=== PATIENT | male | born 1985 | race African-American/Black ===

== ENCOUNTER 2016-07-13 22:04 | Emergency (ER) | payer MEDICAID, OTHER ==
[~2016-07-13] VITALS: Ht 172.7 cm; Wt 94.0 kg
[2016-07-14] MEDS ORDERED: ASPIRIN 81MG TABLET PO STA (02:06)
[2016-07-14 02:27] LABS: EOSINOPHILS % 1.8 % (0.0-5.0); HEMATOCRIT. 46.7 % (42.0-52.0); HEMOGLOBIN. 15.9 g/dL (14.0-18.0); LYMPHOCYTES % 43.9 % (20.0-50.0); MEAN CORPUSCULAR HEMOGLOBIN 31.6 pg (28.0-32.0); MEAN CORPUSCULAR HGB CONC 34.1 g/dL (31.0-37.0); MEAN CORPUSCULAR VOLUME 92.9 fL (80.0-94.0); MEAN PLATELET VOLUME 8.8 fl (7.4-10.4); MONOCYTES % 6.6 % (2.0-8.0); NEUTROPHILS % 46.7 % (40.0-76.0); PLATELET 199 x1000/uL (130-400); RED BLOOD CELL COUNT 5.02 mill/uL (4.7-6.1); RED CELL DISTRIBUTION WIDTH 13.7 % (11.6-14.6); WHITE BLOOD COUNT 8.9 x1000/uL (4.5-11.0)
[2016-07-14 02:31] LABS: PARTIAL THROMBOPLASTIN TIME 26.7 sec (24.0-34.0); PROTHROMBIN TIME 10.7 sec
[2016-07-14 02:41] LABS: ALANINE AMINOTRANSFERASE 24 IU/L (13-61); ALBUMIN 3.7 g/dL (3.4-5.0); ANION GAP 12; CALCIUM 8.8 mg/dL (8.5-10.1); CARBON DIOXIDE 30 mEq/L (21-32); CHLORIDE 108 mEq/L (98-107); INDEX HEMOLYSI 1 (1-3); INDEX ICTERIC 1 (1-4); INDEX LIPEMIC 1 (1-3); LIPASE 100 IU/L (73-393); TROPONIN I < 0.02 ng/mL (0.00-0.04); UREA NITROGEN BLOOD 13 mg/dL (7-21); eGFR > 60 mL/min (>60)
[2016-07-14 02:55] VITALS: BP 127/69
== END 2016-07-14 03:50 | disposition home or self-care (01) ==
LOC: ER 22:05
DX: R07.9 Chest pain, unspecified (principal); R06.02 Shortness of breath; R20.0 Anesthesia of skin; Z79.82 Long term (current) use of aspirin; Z87.891 Personal history of nicotine dependence
CPT/HCPCS: 36415; 71010; 80053; 83690; 84484; 85025; 85610; 85730; 93005; 99285; 99406; Z7610

== ENCOUNTER 2016-07-15 22:37 | Emergency (ER) | payer OTHER ==
[~2016-07-15] VITALS: Ht 170.2 cm; Wt 91.0 kg
[2016-07-16] MEDS ORDERED: ONDANSETRON HCL 4MG/2ML VIAL IV STA (02:11)
[2016-07-16] MEDS ORDERED: MAGNESIUM/ALUMINUM HYDROXIDE/SIMETHICONE 30ML UDC PO STA (02:11)
[2016-07-16] MEDS ORDERED: SODIUM CHLORIDE 0.9% 1,000 ML IV ONE (02:11)
[2016-07-16 02:54] LABS: BASOPHILS % 0.3 % (0.0-2.0); EOSINOPHILS % 3.2 % (0.0-5.0); HEMATOCRIT. 45.8 % (42.0-52.0); HEMOGLOBIN. 15.4 g/dL (14.0-18.0); LYMPHOCYTES % 33.5 % (20.0-50.0); MEAN CORPUSCULAR HEMOGLOBIN 31.3 pg (28.0-32.0); MEAN CORPUSCULAR HGB CONC 33.7 g/dL (31.0-37.0); MONOCYTES % 6.6 % (2.0-8.0); NEUTROPHILS % 56.4 % (40.0-76.0); PLATELET 201 x1000/uL (130-400); RED BLOOD CELL COUNT 4.93 mill/uL (4.7-6.1); RED CELL DISTRIBUTION WIDTH 13.6 % (11.6-14.6); WHITE BLOOD COUNT 9.2 x1000/uL (4.5-11.0)
[2016-07-16 03:08] LABS: ALANINE AMINOTRANSFERASE 22 IU/L (13-61); ALBUMIN 3.8 g/dL (3.4-5.0); ANION GAP 11; CALCIUM 8.6 mg/dL (8.5-10.1); CARBON DIOXIDE 29 mEq/L (21-32); CHLORIDE 106 mEq/L (98-107); ETHANOL BLOOD < 10 mg/dL; INDEX HEMOLYSI 1 (1-3); INDEX ICTERIC 1 (1-4); INDEX LIPEMIC 1 (1-3); LIPASE 95 IU/L (73-393); TROPONIN I < 0.02 ng/mL (0.00-0.04); UREA NITROGEN BLOOD 11 mg/dL (7-21); eGFR > 60 mL/min (>60)
[2016-07-16] MEDS ORDERED: IBUPROFEN 600MG TABLET PO ONE (03:45)
[2016-07-16 05:44] LABS: GLUCOSE URINE NEGATIVE (NEGATIVE); KETONES URINE NEGATIVE (NEGATIVE); LEUKOCYTE ESTERASE URINE TRACE (NEGATIVE); NITRITE URINE NEGATIVE (NEGATIVE); OCCULT BLOOD URINE NEGATIVE (NEGATIVE); PROTEIN URINE NEGATIVE (NEGATIVE)
[2016-07-16 05:46] LABS: CLARITY URINE HAZY (CLEAR); COLOR URINE YELLOW (YELLOW)
[2016-07-16 05:53] LABS: BACTERIA URINE TRACE; RBC URINE 0-2 /hpf (0-2); SQUAMOUS EPITHELIAL CELL URINE NONE SEEN /lpf (RARE/1+); WBC URINE 0-2 /hpf (0-2)
[2016-07-16 05:54] LABS: AMORPHOUS SEDIMENT URINE 1+ /lpf
[2016-07-16 06:03] VITALS: BP 138/84
[2016-07-16 07:02] LABS: *AMPHETAMINES SCREEN URINE NEGATIVE (NEGATIVE); *BARBITURATES SCREEN URINE NEGATIVE (NEGATIVE); *BENZODIAZEPINES SCREEN URINE NEGATIVE (NEGATIVE); *COCAINE SCREEN URINE NEGATIVE (NEGATIVE); CANNABINOID URINE SCREEN PRESUMTIVE POSITIVE (NEGATIVE); ECSTASY MDMA SCREEN URINE NEGATIVE (NEGATIVE); METHADONE URINE SCREEN NEGATIVE (NEGATIVE); OPIATES URINE SCREEN NEGATIVE (NEGATIVE); PHENCYCLIDINE URINE SCREEN NEGATIVE (NEGATIVE)
== END 2016-07-16 06:45 | disposition home or self-care (01) ==
LOC: ER 22:37
DX: J06.9 Acute upper respiratory infection, unspecified (principal); M94.0 Chondrocostal junction syndrome [Tietze]; J45.909 Unspecified asthma, uncomplicated; F17.210 Nicotine dependence, cigarettes, uncomplicated
CPT/HCPCS: 36415; 71010; 80053; 80305; 81001; 83690; 84484; 85025; 93005; 99285; G0482; J7030; Z7610

== ENCOUNTER 2017-01-02 19:14 | Emergency (ER) | payer MEDICARE, OTHER ==
[~2017-01-02] VITALS: Ht 170.2 cm; Wt 100.0 kg
[2017-01-02] MEDS ORDERED: ONDANSETRON HCL 4MG/2ML VIAL IV STA (20:52)
[2017-01-02] MEDS ORDERED: MORPHINE SULFATE 4 MG/ML CPJ (NOT FOR IM USE) IV STA (20:52)
[2017-01-02] MEDS ORDERED: TETANUS, DIPHTHERIA, PERTUSSIS VAC/PF 0.5ML (>7YR OLD) IM ONE (21:45)
[2017-01-02] MEDS ORDERED: HYDROCODONE/ACETAMINOPHEN 5/325MG TABLET PO ONE (21:45)
[2017-01-02] MEDS ORDERED: LIDOCAINE HCL 1% 20ML VIAL (Pyxis) INJ MC ONE (21:45)
[2017-01-02] MEDS ORDERED: BACITRACIN ZINC OINT UDPKT TOP ONE ×2 (21:45→22:00)
[2017-01-03 00:27] VITALS: BP 138/86
== END 2017-01-03 00:35 | disposition home or self-care (01) ==
LOC: ER 19:14
DX: S91.312A Laceration without foreign body, left foot, initial encounter (principal); S40.811A Abrasion of right upper arm, initial encounter; S80.811A Abrasion, right lower leg, initial encounter; T14.8XXA Other injury of unspecified body region, initial encounter; V23.4XXA Motorcycle driver injured in collision with car, pick-up truck or van in traffic accident, initial encounter; Y93.89 Activity, other specified; Y92.488 Other paved roadways as the place of occurrence of the external cause
CPT/HCPCS: 12001; 90471; 90715; 96374; 96375; 99284; J2270; J2405; J3490

== ENCOUNTER 2017-01-09 18:07 | Emergency (ER) | payer MEDICARE, OTHER ==
[~2017-01-09] VITALS: Ht 172.7 cm; Wt 87.0 kg
[2017-01-09] MEDS ORDERED: KETOROLAC 60MG/2ML VIAL IM ONE (20:30)
[2017-01-09 20:45] VITALS: BP 122/71
== END 2017-01-09 21:10 | disposition home or self-care (01) ==
LOC: ER 21:05
DX: S91.312D Laceration without foreign body, left foot, subsequent encounter (principal); V86.96XD Unspecified occupant of dirt bike or motor/cross bike injured in nontraffic accident, subsequent encounter
CPT/HCPCS: 96372; 99283; J1885

== ENCOUNTER 2017-02-07 17:42 | Emergency (ER) | payer MEDICARE, OTHER ==
[~2017-02-07] VITALS: Ht 167.6 cm; Wt 71.0 kg
[2017-02-07 22:10] VITALS: BP 138/95
== END 2017-02-07 22:22 | disposition home or self-care (01) ==
LOC: ER 18:10
DX: J20.9 Acute bronchitis, unspecified (principal); B34.9 Viral infection, unspecified; R03.0 Elevated blood-pressure reading, without diagnosis of hypertension; F12.90 Cannabis use, unspecified, uncomplicated
CPT/HCPCS: 99283

== ENCOUNTER 2017-02-17 21:28 | Emergency (ER) | payer MEDICARE, OTHER ==
[~2017-02-17] VITALS: Ht 172.7 cm; Wt 85.0 kg
[2017-02-17 22:08] VITALS: BP 126/67
[2017-02-18] MEDS ORDERED: IBUPROFEN 400MG TABLET PO ONE (01:15)
[2017-02-18] MEDS ORDERED: BENZONATATE 100MG CAPSULE PO ONE (01:15)
== END 2017-02-18 02:34 | disposition home or self-care (01) ==
LOC: ER 22:13
DX: S62.306A Unspecified fracture of fifth metacarpal bone, right hand, initial encounter for closed fracture (principal); J06.9 Acute upper respiratory infection, unspecified; F17.200 Nicotine dependence, unspecified, uncomplicated; W50.0XXA Accidental hit or strike by another person, initial encounter; Y93.89 Activity, other specified; Y92.89 Other specified places as the place of occurrence of the external cause; Y99.8 Other external cause status
CPT/HCPCS: 29125; 73130; 99284

== ENCOUNTER 2017-03-28 22:55 | Emergency (ER) | payer MEDICARE, OTHER ==
[~2017-03-28] VITALS: Ht 172.7 cm; Wt 91.0 kg
[2017-03-28 23:26] VITALS: BP 147/62
[2017-03-28] MEDS ORDERED: PREDNISONE 20MG TABLET PO STA (23:32)
[2017-03-28] MEDS ORDERED: ALBUTEROL (0.083%) 2.5MG/3ML NEB HHN STA (23:32)
[2017-03-28] MEDS ORDERED: IPRATROPIUM BROMIDE (0.02%) 0.5MG/2.5ML NEB HHN STA (23:32)
== END 2017-03-29 01:40 | disposition home or self-care (01) ==
LOC: ER 22:55
DX: J45.901 Unspecified asthma with (acute) exacerbation (principal)
CPT/HCPCS: 94640; 99283; J7512; J7611

== ENCOUNTER 2017-04-01 20:45 | Emergency (ER) | payer MEDICARE, OTHER ==
[~2017-04-01] VITALS: Ht 172.7 cm; Wt 92.0 kg
[2017-04-01 21:06] VITALS: BP 142/94
== END 2017-04-02 03:27 | disposition left against medical advice (07) ==
LOC: ER 20:45
DX: R07.9 Chest pain, unspecified (principal); Z53.21 Procedure and treatment not carried out due to patient leaving prior to being seen by health care provider
CPT/HCPCS: 93005

== ENCOUNTER 2017-04-03 10:23 | Emergency (ER) | payer MEDICARE, OTHER ==
[~2017-04-03] VITALS: Ht 172.7 cm; Wt 91.0 kg
[2017-04-03 10:32] VITALS: BP 139/93
[2017-04-03] MEDS ORDERED: IPRATROPIUM BROMIDE (0.02%) 0.5MG/2.5ML NEB HHN STA (11:55)
[2017-04-03] MEDS ORDERED: ALBUTEROL (0.083%) 2.5MG/3ML NEB HHN STA (11:55)
[2017-04-03] MEDS ORDERED: PREDNISONE 20MG TABLET PO STA (11:55)
== END 2017-04-03 14:50 | disposition home or self-care (01) ==
LOC: ER 13:02
DX: J45.901 Unspecified asthma with (acute) exacerbation (principal); F12.10 Cannabis abuse, uncomplicated; Z87.891 Personal history of nicotine dependence
CPT/HCPCS: 71045; 93005; 94640; 99284; J7512; J7611

== ENCOUNTER 2017-08-16 22:56 | Emergency (ER) | payer MEDICARE, OTHER ==
[~2017-08-16] VITALS: Ht 172.7 cm; Wt 95.0 kg
[2017-08-16] MEDS ORDERED: ASPIRIN 81MG TABLET PO ONE (23:45)
[2017-08-16] MEDS ORDERED: MAGNESIUM/ALUMINUM HYDROXIDE/SIMETHICONE 30ML UDC PO ONE (23:45)
[2017-08-16] MEDS ORDERED: VISCOUS LIDOCAINE 2% 15 ML UDC PO ONE (23:45)
[2017-08-17 00:18] LABS: BASOPHILS % 0.5 % (0.0-2.0); EOSINOPHILS % 1.5 % (0.0-5.0); HEMATOCRIT. 44.2 % (42.0-52.0); HEMOGLOBIN. 15.2 g/dL (14.0-18.0); LYMPHOCYTES % 38.4 % (20.0-50.0); MEAN CORPUSCULAR HEMOGLOBIN 30.8 pg (28.0-32.0); MEAN CORPUSCULAR VOLUME 89.9 fL (80.0-94.0); MEAN PLATELET VOLUME 8.4 fl (7.4-10.4); NEUTROPHILS % 53.6 % (40.0-76.0); PLATELET 231 x1000/uL (130-400); RED BLOOD CELL COUNT 4.92 mill/uL (4.7-6.1); RED CELL DISTRIBUTION WIDTH 13.1 % (11.6-14.6)
[2017-08-17 00:25] LABS: CHLORIDE 108 mEq/L (98-107)
[2017-08-17 00:37] LABS: D-DIMER < 0.19 mg/L FEU (<0.50); PARTIAL THROMBOPLASTIN TIME 27.3 sec (23.4-31.0); PROTHROMBIN TIME 10.7 sec (9.4-11.6)
[2017-08-17 02:57] VITALS: BP 130/65
== END 2017-08-17 03:00 | disposition home or self-care (01) ==
LOC: ER 22:56
DX: R07.89 Other chest pain (principal); J45.909 Unspecified asthma, uncomplicated; Z87.891 Personal history of nicotine dependence; Z82.49 Family history of ischemic heart disease and other diseases of the circulatory system
CPT/HCPCS: 36415; 71045; 80053; 83880; 84484; 85025; 85379; 85610; 85730; 93005; 99285

== ENCOUNTER 2018-03-15 01:39 | Emergency (ER) | payer MEDICARE, OTHER ==
[~2018-03-15] VITALS: Ht 172.7 cm; Wt 97.0 kg
[2018-03-15 02:15] VITALS: BP 143/94
[2018-03-15 02:18] LABS: BASOPHILS % 0.5 % (0.0-2.0); EOSINOPHILS % 0.8 % (0.0-5.0); HEMATOCRIT. 47.1 % (42.0-52.0); HEMOGLOBIN. 16.1 g/dL (14.0-18.0); LYMPHOCYTES % 26.1 % (20.0-50.0); MEAN CORPUSCULAR HEMOGLOBIN 31.2 pg (28.0-32.0); MEAN CORPUSCULAR VOLUME 91.2 fL (80.0-94.0); MEAN PLATELET VOLUME 9.3 fl (7.4-10.4); MONOCYTES % 6.2 % (2.0-8.0); NEUTROPHILS % 66.4 % (40.0-76.0); PLATELET 241 x1000/uL (130-400); RED BLOOD CELL COUNT 5.16 mill/uL (4.7-6.1)
[2018-03-15 02:28] LABS: CHLORIDE 112 mEq/L (98-107)
[2018-03-15 03:44] LABS: CLARITY URINE CLOUDY (CLEAR); COLOR URINE YELLOW (YELLOW); KETONES URINE TRACE (NEGATIVE); LEUKOCYTE ESTERASE URINE NEGATIVE (NEGATIVE); NITRITE URINE NEGATIVE (NEGATIVE); OCCULT BLOOD URINE TRACE (NEGATIVE); PROTEIN URINE NEGATIVE (NEGATIVE); SPECIFIC GRAVITY URINE 1.024 (1.005-1.030)
[2018-03-15] MEDS ORDERED: POTASSIUM CHLORIDE 20MEQ/PACKET PO ONE (03:45)
[2018-03-15] MEDS ORDERED: KETOROLAC 15MG/ML VIAL IV ONE (04:00)
== END 2018-03-15 04:39 | disposition home or self-care (01) ==
LOC: ER 01:39
DX: R07.89 Other chest pain (principal); J45.909 Unspecified asthma, uncomplicated; F17.200 Nicotine dependence, unspecified, uncomplicated
CPT/HCPCS: 36415; 71045; 80053; 81003; 83880; 84484; 85025; 93005; 96374; 99284; J1885

== ENCOUNTER 2020-05-01 09:51 | Emergency (ER) | payer MEDICARE, MEDICAID ==
[~2020-05-01] VITALS: Ht 170.2 cm; Wt 87.0 kg
[2020-05-01 10:55] VITALS: BP 125/88
[2020-05-01] MEDS ORDERED: ACETAMINOPHEN 325MG TABLET PO ONE (11:00)
== END 2020-05-01 10:56 | disposition home or self-care (01) ==
LOC: ER 09:51
DX: L03.011 Cellulitis of right finger (principal); J45.909 Unspecified asthma, uncomplicated
CPT/HCPCS: 99281

== ENCOUNTER 2021-04-18 04:39 | Emergency (ER) | payer MEDICARE, MEDICAID ==
[~2021-04-18] VITALS: Ht 172.7 cm; Wt 96.0 kg
[2021-04-18 04:46] VITALS: BP 163/112
[2021-04-18] MEDS ORDERED: KETOROLAC 60MG/2ML VIAL IM STA (04:51)
[2021-04-18] MEDS ORDERED: AMOX-424 PO (05:21)
[2021-04-18] MEDS ORDERED: IBUP-2030 PO (05:21)
== END 2021-04-18 05:42 | disposition home or self-care (01) ==
LOC: ER 04:39
DX: K04.7 Periapical abscess without sinus (principal)
CPT/HCPCS: 96372; 99283; J1885

== ENCOUNTER 2021-05-24 08:41 | Emergency (ER) | payer MEDICARE, MEDICAID ==
[~2021-05-24] VITALS: Ht 172.7 cm; Wt 99.0 kg
[~2021-05-24 08:41] MED LIST: AMOX-424 PO; IBUP-2030 PO
[2021-05-24 08:47] VITALS: BP 120/75
[2021-05-24] MEDS ORDERED: BO1 TP (09:19)
[2021-05-24] MEDS ORDERED: AMOX-424 MT (09:19)
== END 2021-05-24 10:23 | disposition left against medical advice (07) ==
LOC: ER 09:05
DX: L03.012 Cellulitis of left finger (principal); J45.909 Unspecified asthma, uncomplicated
CPT/HCPCS: 99283

== ENCOUNTER 2021-07-29 23:25 | Emergency (ER) | payer MEDICARE, MEDICAID ==
[~2021-07-29] VITALS: Ht 172.7 cm; Wt 100.2 kg
[~2021-07-29 23:25] MED LIST changes: +AMOX-424 MT; +BO1 TP
[2021-07-30 00:22] LABS: BASOPHILS % 0.4 % (0.0-2.0); EOSINOPHILS % 1.5 % (0.0-5.0); HEMATOCRIT. 45.6 % (42.0-52.0); HEMOGLOBIN. 15.3 g/dL (14.0-18.0); LYMPHOCYTES % 38.7 % (20.0-50.0); MEAN CORPUSCULAR HEMOGLOBIN 30.6 pg (28.0-32.0); MEAN CORPUSCULAR VOLUME 91.1 fL (80.0-94.0); MEAN PLATELET VOLUME 8.9 fl (7.4-10.4); MONOCYTES % 4.8 % (2.0-8.0); NEUTROPHILS % 54.6 % (40.0-76.0); PLATELET 224 x1000/uL (130-400); RED BLOOD CELL COUNT 5.01 mill/uL (4.7-6.1); RED CELL DISTRIBUTION WIDTH 13.2 % (11.6-14.6)
[2021-07-30 00:28] LABS: CHLORIDE 112 mEq/L (98-107)
[2021-07-30 02:55] VITALS: BP 133/86
== END 2021-07-30 02:58 | disposition left against medical advice (07) ==
LOC: ER 23:25
DX: R07.9 Chest pain, unspecified (principal); J45.909 Unspecified asthma, uncomplicated
CPT/HCPCS: 36415; 71045; 80053; 83880; 84484; 85025; 85379; 93005; 99285

== ENCOUNTER 2022-05-03 02:44 | Inpatient (IN) | payer MEDICARE, MEDICAID ==
[~2022-05-03] VITALS: Ht 205.7 cm; Wt 94.5 kg
[2022-05-03] MEDS ORDERED: ONDANSETRON HCL 4MG/2ML INJ IV STA ×2 (04:30→06:12)
[2022-05-03] MEDS ORDERED: SODIUM CHLORIDE 0.9% 1,000 ML IV ONE ×2 (04:30→09:00)
[2022-05-03] MEDS ORDERED: KETOROLAC 30MG/ML VIAL IV STA (04:30)
[2022-05-03 05:01] LABS: CLARITY URINE CLEAR (CLEAR); COLOR URINE YELLOW (YELLOW); KETONES URINE NEGATIVE (NEGATIVE); LEUKOCYTE ESTERASE URINE NEGATIVE (NEGATIVE); NITRITE URINE NEGATIVE (NEGATIVE); OCCULT BLOOD URINE 3+ (NEGATIVE); PROTEIN URINE NEGATIVE (NEGATIVE); SPECIFIC GRAVITY URINE 1.019 (1.005-1.030)
[2022-05-03 05:16] LABS: BASOPHILS % 0.4 % (0.0-2.0); EOSINOPHILS % 0.9 % (0.0-5.0); HEMATOCRIT. 43.7 % (42.0-52.0); HEMOGLOBIN. 14.7 g/dL (14.0-18.0); LYMPHOCYTES % 20.5 % (20.0-50.0); MEAN CORPUSCULAR HEMOGLOBIN 31.2 pg (28.0-32.0); MEAN CORPUSCULAR VOLUME 92.9 fL (80.0-94.0); MEAN PLATELET VOLUME 9.8 fl (7.4-10.4); MONOCYTES % 5.2 % (2.0-8.0); PLATELET 229 x1000/uL (130-400); RED CELL DISTRIBUTION WIDTH 13.8 % (11.6-14.6)
[2022-05-03 05:17] LABS: CHLORIDE 108 mEq/L (98-107)
[2022-05-03] MEDS ORDERED: MORPHINE SULFATE 4 MG/ML CPJ (NOT FOR IM USE) IV STA (06:12)
[2022-05-03] MEDS ORDERED: MORPHINE SULFATE 4 MG/ML CPJ (NOT FOR IM USE) IV ONE (07:45)
[2022-05-03] MEDS ORDERED: METOCLOPRAMIDE HCL 10MG/2ML VIAL IV ONE (09:00)
[2022-05-03] MEDS ORDERED: DIPHENHYDRAMINE 50MG/ML VIAL IV ONE (09:00)
[2022-05-03 13:07] VITALS: BP 128/70
[2022-05-03] MEDS ORDERED: ONDANSETRON HCL 4MG/2ML INJ IV PRN (14:00)
[2022-05-03] MEDS: SODIUM CHLORIDE 0.9% 1,000 ML IV SCH (14:00)
[2022-05-03] MEDS ORDERED: KETOROLAC 30MG/ML VIAL IV PRN (14:00)
[2022-05-03] MEDS ORDERED: ACETAMINOPHEN 325MG TABLET PO PRN ×2 (14:00)
[2022-05-03] MEDS ORDERED: MORPHINE SULFATE 2 MG/ML CPJ (NOT FOR IM USE) IV PRN (14:00)
[2022-05-03] MEDS ORDERED: CLONIDINE 0.1MG TABLET PO PRN (14:00)
[2022-05-03] MEDS ORDERED: MAGNESIUM/ALUMINUM HYDROXIDE/SIMETHICONE 30ML UDC PO PRN (14:00)
[2022-05-03] MEDS ORDERED: DOCUSATE SODIUM 100MG CAPSULE PO PRN (14:00)
[2022-05-03] MEDS: TAMSULOSIN HCL 0.4MG SR CAPSULE PO SCH (15:23)
[2022-05-03 16:00] VITALS: BP 148/89
[2022-05-03] MEDS: KETOROLAC 30MG/ML VIAL IV SCH ×2 (17:06→20:58)
[2022-05-03 17:18] LABS: *AMPHETAMINES SCREEN URINE NEGATIVE (NEGATIVE); *BARBITURATES SCREEN URINE NEGATIVE (NEGATIVE); *BENZODIAZEPINES SCREEN URINE NEGATIVE (NEGATIVE); *COCAINE SCREEN URINE NEGATIVE (NEGATIVE); CANNABINOID URINE SCREEN PRESUMTIVE POSITIVE (NEGATIVE); METHADONE URINE SCREEN NEGATIVE (NEGATIVE); OPIATES URINE SCREEN PRESUMTIVE POSITIVE (NEGATIVE); PHENCYCLIDINE URINE SCREEN NEGATIVE (NEGATIVE)
[2022-05-03 20:00] VITALS: BP 126/70
[2022-05-03] MEDS ORDERED: NALOXONE HCL 0.4MG/ML VIAL IV PRN (20:15)
[2022-05-03] MEDS ORDERED: ENOXAPARIN 30MG/0.3ML SYR SUBCUT SCH (21:00)
[2022-05-04] VITALS: BP 103/77
[2022-05-04] MEDS ORDERED: CEFTRIAXONE 1 G PREMIX 50 ML IV SCH (00:15)
[2022-05-04] MEDS ORDERED: CEFTRIAXONE 1,000 MG in DEXTROSE 5% WATER 50 ML IV SCH (01:00)
[2022-05-04] MEDS: SODIUM CHLORIDE 0.9% 1,000 ML IV SCH (03:20)
[2022-05-04 04:00] VITALS: BP 120/80
[2022-05-04 07:01] LABS: BASOPHILS % 0.5 % (0.0-2.0); EOSINOPHILS % 1.3 % (0.0-5.0); HEMATOCRIT. 42.6 % (42.0-52.0); HEMOGLOBIN. 14.5 g/dL (14.0-18.0); LYMPHOCYTES % 27.5 % (20.0-50.0); MEAN CORPUSCULAR HEMOGLOBIN 31.7 pg (28.0-32.0); MEAN CORPUSCULAR VOLUME 93.1 fL (80.0-94.0); MEAN PLATELET VOLUME 9.9 fl (7.4-10.4); NEUTROPHILS % 62.7 % (40.0-76.0); PLATELET 193 x1000/uL (130-400); RED BLOOD CELL COUNT 4.58 mill/uL (4.7-6.1); RED CELL DISTRIBUTION WIDTH 13.7 % (11.6-14.6)
[2022-05-04] MEDS ORDERED: OMEPRAZOLE 20MG CAPSULE EXTENDED RELEASE PO SCH (07:20)
[2022-05-04 07:39] LABS: CHLORIDE 108 mEq/L (98-107)
[2022-05-04 08:00] VITALS: BP 116/74
[2022-05-04 08:03] LABS: HDL CHOLESTEROL 44 mg/dL (40-59); LDL CHOLESTEROL 112 mg/dL (5-100)
[2022-05-04] MEDS: TAMSULOSIN HCL 0.4MG SR CAPSULE PO SCH (08:54)
[2022-05-04 12:00] VITALS: BP 109/61
[2022-05-04 15:52] LABS: CLARITY URINE CLEAR (CLEAR); COLOR URINE YELLOW (YELLOW); KETONES URINE TRACE (NEGATIVE); LEUKOCYTE ESTERASE URINE NEGATIVE (NEGATIVE); NITRITE URINE NEGATIVE (NEGATIVE); OCCULT BLOOD URINE 1+ (NEGATIVE); PROTEIN URINE TRACE (NEGATIVE); SPECIFIC GRAVITY URINE 1.011 (1.005-1.030)
[2022-05-04 16:00] VITALS: BP 126/68
[2022-05-04 16:13] VITALS: BP 109/61
== END 2022-05-04 16:45 | disposition home or self-care (01) | DRG 694 ==
LOC: ER 02:44 → MICUSO 09:26 → EDBEDREQ 09:32 → EDBEDREQTM 09:32 → 6EST 13:41
PROVIDERS: ADMIT Internal Medicine; ATTEND Internal Medicine
DX: N13.2 Hydronephrosis with renal and ureteral calculous obstruction (principal); F41.9 Anxiety disorder, unspecified; J45.909 Unspecified asthma, uncomplicated; F32.9 Major depressive disorder, single episode, unspecified; F32.A Depression, unspecified; Z63.4 Disappearance and death of family member; Z87.442 Personal history of urinary calculi; Z82.49 Family history of ischemic heart disease and other diseases of the circulatory system
CPT/HCPCS: 36415; 74176; 80048; 80053; 80061; 80305; 81003; 85025; 99285; G0378; J0696; J1200; J1650; J1885; J2270; J2405; J2765; J7030; J7060

== ENCOUNTER 2022-09-18 08:46 | Emergency (ER) | payer BC, MEDICAID ==
[~2022-09-18] VITALS: Ht 172.7 cm; Wt 91.0 kg
[2022-09-18 09:04] VITALS: TEMP 98.5; O2SAT 97
[2022-09-18 09:45] VITALS: BP 120/76; PULSE 76; RESP 20
[2022-09-18] MEDS ORDERED: TRAMADOL 50MG TABLET PO ONE (09:45)
[2022-09-18] MEDS ORDERED: IBUPROFEN 600MG TABLET PO ONE (09:45)
[2022-09-18 10:36] LABS: BASOPHILS % 0.3 % (0.0-2.0); EOSINOPHILS % 1.7 % (0.0-5.0); HEMATOCRIT. 42.8 % (42.0-52.0); HEMOGLOBIN. 14.4 g/dL (14.0-18.0); LYMPHOCYTES % 17.8 % (20.0-50.0); MEAN CORPUSCULAR HEMOGLOBIN 30.7 pg (28.0-32.0); MEAN CORPUSCULAR VOLUME 91.3 fL (80.0-94.0); MEAN PLATELET VOLUME 8.7 fl (7.4-10.4); MONOCYTES % 6.8 % (2.0-8.0); NEUTROPHILS % 73.4 % (40.0-76.0); PLATELET 181 x1000/uL (130-400); RED BLOOD CELL COUNT 4.68 mill/uL (4.7-6.1); RED CELL DISTRIBUTION WIDTH 13.9 % (11.6-14.6)
[2022-09-18 10:44] LABS: CHLORIDE 110 mEq/L (98-107)
[2022-09-18 10:51] LABS: ETHANOL BLOOD < 10 mg/dL (-10)
[2022-09-18] MEDS ORDERED: IBUP-2030 MT (12:23)
== END 2022-09-18 12:34 | disposition home or self-care (01) ==
LOC: ER 08:46
DX: N23 Unspecified renal colic (principal); J45.909 Unspecified asthma, uncomplicated
CPT/HCPCS: 36415; 71046; 76770; 80053; 80320; 85025; 99285; G0480

== ENCOUNTER 2022-12-16 11:40 | Emergency (ER) | payer BC, MEDICAID ==
[~2022-12-16 11:40] MED LIST changes: +IBUP-2030 MT
[2022-12-16 11:55] VITALS: PULSE 77; RESP 18
== END 2022-12-16 13:14 | disposition left against medical advice (07) ==
LOC: ER 13:04
DX: R06.02 Shortness of breath (principal); J45.909 Unspecified asthma, uncomplicated
CPT/HCPCS: 99281

== ENCOUNTER 2023-03-10 09:33 | Inpatient (IN) | payer BC, MEDICAID ==
[~2023-03-10] VITALS: Ht 170.2 cm; Wt 95.3 kg
[2023-03-10 10:36] LABS: EOSINOPHILS % 1.8 % (0.0-5.0); HEMATOCRIT. 44.5 % (42.0-52.0); HEMOGLOBIN. 14.5 g/dL (14.0-18.0); LYMPHOCYTES % 42.6 % (20.0-50.0); MEAN CORPUSCULAR HEMOGLOBIN 30.5 pg (28.0-32.0); MEAN CORPUSCULAR HGB CONC 32.6 g/dL (31.0-37.0); MEAN CORPUSCULAR VOLUME 93.6 fL (80.0-94.0); MEAN PLATELET VOLUME 8.7 fl (7.4-10.4); MONOCYTES % 6.8 % (2.0-8.0); NEUTROPHILS % 47.8 % (40.0-76.0); PLATELET 241 x1000/uL (130-400); RED BLOOD CELL COUNT 4.75 mill/uL (4.7-6.1); RED CELL DISTRIBUTION WIDTH 13.2 % (11.6-14.6); WHITE BLOOD COUNT 8.1 x1000/uL (4.5-11.0)
[2023-03-10 10:38] LABS: PROTHROMBIN TIME 10.6 sec (9.6-11.0)
[2023-03-10 13:43] LABS: ALANINE AMINOTRANSFERASE 42 IU/L (10-49); ASPARTATE AMINOTRANSFERASE 27 IU/L (<34); BILIRUBIN TOTAL 0.3 mg/dL (0.1-1.0); CALCIUM 8.8 mg/dL (8.7-10.4); CARBON DIOXIDE 28 mEq/L (21-32); CHLORIDE 106 mEq/L (98-107); CREATININE 1.2 mg/dL (0.6-1.3); GLUCOSE 78 mg/dL (70-105); POTASSIUM 4.2 mEq/L (3.5-5.1); PROTEIN TOTAL 6.6 g/dL (6.0-8.3); SODIUM 143 mEq/L (136-145); UREA NITROGEN BLOOD 10 mg/dL (9-23)
[2023-03-10] MEDS ORDERED: PANTOPRAZOLE SODIUM 40 MG/VIAL IV ONE (13:45)
[2023-03-10 13:58] LABS: CLARITY URINE CLEAR (CLEAR); COLOR URINE YELLOW (YELLOW); SPECIFIC GRAVITY URINE 1.025 (1.005-1.030)
[2023-03-10 13:59] LABS: GLUCOSE URINE NEGATIVE (NEGATIVE); KETONES URINE TRACE (NEGATIVE); LEUKOCYTE ESTERASE URINE NEGATIVE (NEGATIVE); NITRITE URINE NEGATIVE (NEGATIVE); OCCULT BLOOD URINE NEGATIVE (NEGATIVE); PROTEIN URINE NEGATIVE (NEGATIVE); UROBILINOGEN URINE 0.2 E.U./dL (0.2-1.0)
[2023-03-10 20:10] VITALS: BP 127/83; PULSE 74; RESP 18; TEMP 98.4
[2023-03-10 21:00] VITALS: BP 127/83; PULSE 74; RESP 18; TEMP 98.4
[2023-03-10] MEDS ORDERED: NALOXONE HCL 0.4MG/ML VIAL IV PRN (21:00)
[2023-03-10] MEDS ORDERED: ONDANSETRON HCL 4MG/2ML INJ IV PRN (21:00)
[2023-03-10] MEDS: SODIUM CHLORIDE 0.9% 1,000 ML IV SCH (22:00)
[2023-03-11] VITALS: BP 111/60; PULSE 73; RESP 18; TEMP 98.4
[2023-03-11 04:00] VITALS: BP 112/58; PULSE 76; RESP 18; TEMP 97.9
[2023-03-11 06:50] LABS: BASOPHILS % 0.7 % (0.0-2.0); EOSINOPHILS % 1.7 % (0.0-5.0); HEMATOCRIT. 43.8 % (42.0-52.0); HEMOGLOBIN. 14.8 g/dL (14.0-18.0); LYMPHOCYTES % 33.4 % (20.0-50.0); MEAN CORPUSCULAR HEMOGLOBIN 30.7 pg (28.0-32.0); MEAN CORPUSCULAR HGB CONC 33.9 g/dL (31.0-37.0); MEAN CORPUSCULAR VOLUME 90.7 fL (80.0-94.0); MEAN PLATELET VOLUME 8.6 fl (7.4-10.4); MONOCYTES % 6.1 % (2.0-8.0); NEUTROPHILS % 58.1 % (40.0-76.0); PLATELET 205 x1000/uL (130-400); RED BLOOD CELL COUNT 4.83 mill/uL (4.7-6.1); RED CELL DISTRIBUTION WIDTH 13.2 % (11.6-14.6); WHITE BLOOD COUNT 7.8 x1000/uL (4.5-11.0)
[2023-03-11 07:56] LABS: CALCIUM 8.3 mg/dL (8.7-10.4); CARBON DIOXIDE 27 mEq/L (21-32); CHLORIDE 106 mEq/L (98-107); CREATININE 0.9 mg/dL (0.6-1.3); GLUCOSE 84 mg/dL (70-105); POTASSIUM 3.9 mEq/L (3.5-5.1); SODIUM 141 mEq/L (136-145); UREA NITROGEN BLOOD 8 mg/dL (9-23)
[2023-03-11 08:00] VITALS: BP 123/75; PULSE 72; RESP 18; TEMP 96.9
[2023-03-11] MEDS: HYDROCODONE/ACETAMINOPHEN 5/325MG TABLET PO PRN ×2 (08:51→16:38)
[2023-03-11] MEDS ORDERED: PANTOPRAZOLE SODIUM 40 MG/VIAL IV SCH (09:00)
[2023-03-11] MEDS: SODIUM CHLORIDE 0.9% 1,000 ML IV SCH ×2 (09:25→23:43)
[2023-03-11 12:00] VITALS: BP 108/60; PULSE 77; RESP 18; TEMP 96.6
[2023-03-11] MEDS ORDERED: FAMO20TA8 PO (15:18)
[2023-03-11] MEDS ORDERED: PANT20TA17 PO (15:18)
[2023-03-11 16:00] VITALS: BP 134/83; PULSE 74; RESP 18; TEMP 97
[2023-03-11 20:00] VITALS: BP 121/73; PULSE 72; RESP 18; TEMP 98.2
[2023-03-11] MEDS: PANTOPRAZOLE SODIUM 40 MG/VIAL IV SCH (20:55)
[2023-03-12] VITALS: BP 115/66; PULSE 74; RESP 18; TEMP 98.2
[2023-03-12 00:42] LABS: HEMATOCRIT 44.2 % (42.0-52.0); HEMOGLOBIN 14.6 g/dL (14.0-18.0)
[2023-03-12] MEDS: HYDROCODONE/ACETAMINOPHEN 5/325MG TABLET PO PRN ×2 (01:04→05:10)
[2023-03-12 04:00] VITALS: BP 138/90; PULSE 67; RESP 18; TEMP 98
[2023-03-12 06:48] VITALS: BP 156/130
[2023-03-12 06:57] LABS: BASOPHILS % 0.4 % (0.0-2.0); EOSINOPHILS % 2.3 % (0.0-5.0); HEMATOCRIT. 42.9 % (42.0-52.0); HEMOGLOBIN. 14.5 g/dL (14.0-18.0); LYMPHOCYTES % 40.7 % (20.0-50.0); MEAN CORPUSCULAR HEMOGLOBIN 30.5 pg (28.0-32.0); MEAN CORPUSCULAR HGB CONC 33.7 g/dL (31.0-37.0); MEAN CORPUSCULAR VOLUME 90.5 fL (80.0-94.0); MEAN PLATELET VOLUME 8.8 fl (7.4-10.4); NEUTROPHILS % 48.6 % (40.0-76.0); PLATELET 214 x1000/uL (130-400); RED BLOOD CELL COUNT 4.74 mill/uL (4.7-6.1); RED CELL DISTRIBUTION WIDTH 13.2 % (11.6-14.6); WHITE BLOOD COUNT 7.1 x1000/uL (4.5-11.0)
[2023-03-12 07:50] VITALS: BP 143/85; PULSE 88; RESP 20
[2023-03-12] MEDS ORDERED: MORPHINE SULFATE 2 MG/ML CPJ (NOT FOR IM USE) IV NR (08:00)
[2023-03-12] MEDS ORDERED: MORPHINE SULFATE 4 MG/ML CPJ (NOT FOR IM USE) IV NR (08:30)
[2023-03-12 09:00] VITALS: BP 118/68; PULSE 60; RESP 19; TEMP 98.9
[2023-03-12] MEDS: PANTOPRAZOLE SODIUM 40 MG/VIAL IV SCH ×2 (09:00→20:51)
[2023-03-12 12:49] LABS: HEMATOCRIT 46.6 % (42.0-52.0); HEMOGLOBIN 15.7 g/dL (14.0-18.0)
[2023-03-12] MEDS: SODIUM CHLORIDE 0.9% 1,000 ML IV SCH (12:51)
[2023-03-12] MEDS ORDERED: IPRATROPIUM/ALBUTEROL 0.5-3(2.5)MG/3ML NEB HHN PRN (13:15)
[2023-03-12 18:22] LABS: IRON 35 ug/dL (65-175); TOTAL IRON BINDING CAPACITY 167 ug/dl (250-425)
[2023-03-12 18:24] LABS: FERRITIN 80 ng/mL (22-322); FOLIC ACID (FOLATE) SERUM 16.72 ng/mL (>5.38); VITAMIN B12 SERUM 404 pg/mL (211-911)
[2023-03-12 20:00] VITALS: BP 128/92; PULSE 97; RESP 20; TEMP 98.1
[2023-03-12 21:28] LABS: HEMATOCRIT 44.9 % (42.0-52.0); HEMOGLOBIN 15.3 g/dL (14.0-18.0)
[2023-03-13] VITALS: BP 133/83; PULSE 78; RESP 20; TEMP 97.9
[2023-03-13] MEDS: SODIUM CHLORIDE 0.9% 1,000 ML IV SCH (02:20)
[2023-03-13] MEDS: HYDROCODONE/ACETAMINOPHEN 5/325MG TABLET PO PRN ×3 (03:36→13:39)
[2023-03-13 04:00] VITALS: BP 114/96; PULSE 71; RESP 20; TEMP 98.1
[2023-03-13 07:03] LABS: BASOPHILS % 0.6 % (0.0-2.0); EOSINOPHILS % 0.7 % (0.0-5.0); HEMOGLOBIN. 15.3 g/dL (14.0-18.0); LYMPHOCYTES % 29.8 % (20.0-50.0); MEAN CORPUSCULAR HEMOGLOBIN 30.6 pg (28.0-32.0); MEAN CORPUSCULAR VOLUME 89.9 fL (80.0-94.0); MEAN PLATELET VOLUME 8.5 fl (7.4-10.4); MONOCYTES % 6.8 % (2.0-8.0); NEUTROPHILS % 62.1 % (40.0-76.0); PLATELET 231 x1000/uL (130-400); RED BLOOD CELL COUNT 5.01 mill/uL (4.7-6.1); RED CELL DISTRIBUTION WIDTH 13.2 % (11.6-14.6); WHITE BLOOD COUNT 9.2 x1000/uL (4.5-11.0)
[2023-03-13 08:00] VITALS: BP 101/56; PULSE 71; RESP 20; TEMP 97.5
[2023-03-13] MEDS: PANTOPRAZOLE SODIUM 40 MG/VIAL IV SCH (09:34)
[2023-03-13 13:50] VITALS: BP 101/56; PULSE 71; TEMP 97.6; O2SAT 98
== END 2023-03-13 13:56 | disposition home or self-care (01) | DRG 379 ==
LOC: ER 09:53 → 4WST 17:01 → 6EST 03-12 09:21
PROVIDERS: ADMIT Internal Medicine; ATTEND Internal Medicine
DX: K57.31 Diverticulosis of large intestine without perforation or abscess with bleeding (principal); E66.9 Obesity, unspecified; N20.0 Calculus of kidney; J40 Bronchitis, not specified as acute or chronic; F41.9 Anxiety disorder, unspecified; I10 Essential (primary) hypertension; F32.A Depression, unspecified; Z82.49 Family history of ischemic heart disease and other diseases of the circulatory system; Z87.442 Personal history of urinary calculi; Z79.899 Other long term (current) drug therapy; Z68.32 Body mass index [BMI] 32.0-32.9, adult
CPT/HCPCS: 36415; 71045; 74174; 80048; 80053; 81003; 82270; 82607; 82728; 82746; 82962; 83540; 83550; 85014; 85018; 85025; 85044; 86850; 86900; 99285; C9113; J2270; J2405; J7030

== ENCOUNTER 2023-03-29 19:36 | Emergency (ER) | payer BC, MEDICAID ==
[~2023-03-29] VITALS: Ht 172.7 cm; Wt 104.5 kg
[~2023-03-29 19:36] MED LIST changes: -AMOX-424 MT; -AMOX-424 PO; -BO1 TP; +FAMO20TA8 PO; -IBUP-2030 MT; -IBUP-2030 PO; +PANT20TA17 PO
[2023-03-29 20:05] VITALS: BP 145/97; PULSE 84; RESP 24; TEMP 97.6; O2SAT 98
[2023-03-29] MEDS ORDERED: IBUPROFEN 600MG TABLET PO STA (20:07)
[2023-03-29] MEDS ORDERED: ALBUTEROL (0.083%) 2.5MG/3ML NEB HHN ONE (20:15)
[2023-03-29] MEDS ORDERED: PREDNISONE 20MG TABLET PO ONE (20:15)
[2023-03-29 20:29] LABS: BASOPHILS % 0.3 % (0.0-2.0); EOSINOPHILS % 0.7 % (0.0-5.0); HEMATOCRIT. 47.1 % (42.0-52.0); HEMOGLOBIN. 15.3 g/dL (14.0-18.0); LYMPHOCYTES % 20.7 % (20.0-50.0); MEAN CORPUSCULAR HEMOGLOBIN 30.1 pg (28.0-32.0); MEAN CORPUSCULAR HGB CONC 32.6 g/dL (31.0-37.0); MEAN CORPUSCULAR VOLUME 92.3 fL (80.0-94.0); MEAN PLATELET VOLUME 8.4 fl (7.4-10.4); MONOCYTES % 4.2 % (2.0-8.0); NEUTROPHILS % 74.1 % (40.0-76.0); PLATELET 243 x1000/uL (130-400); RED CELL DISTRIBUTION WIDTH 13.4 % (11.6-14.6); WHITE BLOOD COUNT 12.3 x1000/uL (4.5-11.0)
[2023-03-29 20:42] LABS: ALANINE AMINOTRANSFERASE 38 IU/L (10-49); ALBUMIN 4.3 g/dL (3.2-4.8); ASPARTATE AMINOTRANSFERASE 28 IU/L (<34); BILIRUBIN TOTAL 0.4 mg/dL (0.1-1.0); CALCIUM 9.5 mg/dL (8.7-10.4); CARBON DIOXIDE 27 mEq/L (21-32); CHLORIDE 107 mEq/L (98-107); GLUCOSE 104 mg/dL (70-105); PROTEIN TOTAL 7.1 g/dL (6.0-8.3); SODIUM 141 mEq/L (136-145); UREA NITROGEN BLOOD 10 mg/dL (9-23)
== END 2023-03-29 20:25 | disposition left against medical advice (07) ==
LOC: ER 19:56
DX: R07.89 Other chest pain (principal); J45.909 Unspecified asthma, uncomplicated
CPT/HCPCS: 36415; 71045; 80053; 85025; 93005; 99285

== ENCOUNTER 2023-04-09 02:11 | Emergency (ER) | payer BC, MEDICAID ==
[~2023-04-09] VITALS: Ht 172.7 cm; Wt 99.0 kg
[2023-04-09 02:21] VITALS: O2SAT 98
[2023-04-09] MEDS ORDERED: ACETAMINOPHEN 325MG TABLET PO ONE (04:00)
[2023-04-09] MEDS ORDERED: MAGNESIUM/ALUMINUM HYDROXIDE/SIMETHICONE 30ML UDC PO ONE (04:00)
[2023-04-09 04:38] LABS: BG BASE EXCESS 0.8 mmol/L (-2.0-2.0); BG CARBOXYHEMOGLOBIN 0.3 % (0.5-1.5); BG DEOXYHEMOGLOBIN 3.1 % (0.0-5.0); BG FRACTION INSPIRED OXYGEN 21; BG HCO3 ACT 25.8 mmol/L (22.0-26.0); BG METHEMOGLOBIN 0.3 % (0.0-1.5); BG OXYGEN SATURATION 96.9 % (92.0-98.5); BG OXYHEMOGLOBIN 96.3 % (94.0-97.0); BG PCO2 42.4 mmHg (35.0-45.0); BG PH 7.402 (7.350-7.450); BG PO2 91.5 mmHg (75.0-100.0); BG SAMPLE SITE RIGHT RADIAL; BG TOTAL HEMOGLOBIN 15.9 g/dL (12.0-18.0); BG VENT MODE ROOM AIR
[2023-04-09 04:45] VITALS: BP 140/66; PULSE 78; RESP 18; TEMP 98.2
== END 2023-04-09 04:55 | disposition home or self-care (01) ==
LOC: ER 02:11
DX: J68.9 Unspecified respiratory condition due to chemicals, gases, fumes and vapors (principal)
CPT/HCPCS: 36600; 82375; 82805; 99283

== ENCOUNTER 2023-08-10 09:14 | Emergency (ER) | payer BC, MEDICAID ==
[~2023-08-10] VITALS: Ht 172.7 cm; Wt 109.0 kg
[2023-08-10 09:34] VITALS: TEMP 98.2; O2SAT 98
[2023-08-10 10:30] VITALS: BP 136/86; PULSE 84; RESP 16
[2023-08-10] MEDS: KETOROLAC 30MG/ML VIAL IM ONE (10:30)
[2023-08-10 11:03] LABS: CHLORIDE 110 mEq/L (98-107); POTASSIUM 3.9 mEq/L (3.5-5.1); SODIUM 137 mEq/L (136-145)
[2023-08-10 11:04] LABS: CALCIUM 9.3 mg/dL (8.7-10.4); CARBON DIOXIDE 23 mEq/L (21-32)
[2023-08-10] MEDS ORDERED: NAPR500T7 MT (11:06)
[2023-08-10 11:09] LABS: CREATININE 0.9 mg/dL (0.6-1.3); GLUCOSE 110 mg/dL (70-105)
[2023-08-10 11:14] LABS: THYROID STIMULATING HORMONE 0.23 uIU/mL (0.55-4.78)
[2023-08-10 11:18] LABS: BASOPHILS % 0.6 % (0.0-2.0); HEMATOCRIT. 45.1 % (42.0-52.0); HEMOGLOBIN. 15.3 g/dL (14.0-18.0); LYMPHOCYTES % 31.8 % (20.0-50.0); MEAN CORPUSCULAR HEMOGLOBIN 30.7 pg (28.0-32.0); MEAN CORPUSCULAR HGB CONC 33.8 g/dL (31.0-37.0); MEAN CORPUSCULAR VOLUME 90.8 fL (80.0-94.0); MONOCYTES % 6.7 % (2.0-8.0); NEUTROPHILS % 58.9 % (40.0-76.0); PLATELET 309 x1000/uL (130-400); RED BLOOD CELL COUNT 4.97 mill/uL (4.7-6.1); RED CELL DISTRIBUTION WIDTH 14.9 % (11.6-14.6)
[2023-08-10 11:19] LABS: WHITE BLOOD COUNT 9.3 x1000/uL (4.5-11.0)
[2023-08-10 11:28] LABS: UREA NITROGEN BLOOD < 5 mg/dL (9-23)
== END 2023-08-10 13:18 | disposition home or self-care (01) ==
LOC: ER 09:14
DX: S59.802A Other specified injuries of left elbow, initial encounter (principal); S69.82XA Other specified injuries of left wrist, hand and finger(s), initial encounter; R73.09 Other abnormal glucose; J45.909 Unspecified asthma, uncomplicated; W18.39XA Other fall on same level, initial encounter; Y93.89 Activity, other specified; Y92.89 Other specified places as the place of occurrence of the external cause; Y99.8 Other external cause status
CPT/HCPCS: 99284; 80048; 84439; 84480; 84443; 85025; 36415; 73080; 73110; 96372; J1885

== ENCOUNTER 2024-02-11 01:25 | Emergency (ER) | payer BC ==
[~2024-02-11] VITALS: Ht 172.7 cm; Wt 99.0 kg
[~2024-02-11 01:25] MED LIST changes: +NAPR-1486 MT
[2024-02-11 01:33] VITALS: TEMP 98.3; O2SAT 98
[2024-02-11 01:57] LABS: CLARITY URINE CLEAR (CLEAR); COLOR URINE YELLOW (YELLOW); GLUCOSE URINE NEGATIVE (NEGATIVE); KETONES URINE NEGATIVE (NEGATIVE); LEUKOCYTE ESTERASE URINE NEGATIVE (NEGATIVE); NITRITE URINE NEGATIVE (NEGATIVE); OCCULT BLOOD URINE NEGATIVE (NEGATIVE); PH URINE 6.5 (4.5-8.0); PROTEIN URINE NEGATIVE (NEGATIVE); SPECIFIC GRAVITY URINE 1.031 (1.005-1.030); UROBILINOGEN URINE 0.2 E.U./dL (0.2-1.0)
[2024-02-11] MEDS: CEFTRIAXONE SODIUM 500MG VIAL IM ONE (04:26)
[2024-02-11] MEDS: LIDOCAINE HCL/PF 1% 10 MG/ML 5ML VIAL INFIL ONE (04:26)
[2024-02-11] MEDS ORDERED: DOXY100T28 MT (04:33)
[2024-02-11] MEDS ORDERED: CLOT15CR27 TP (04:33)
[2024-02-11 04:50] VITALS: BP 140/105; PULSE 76; RESP 20; O2SAT 99
== END 2024-02-11 04:55 | disposition home or self-care (01) ==
LOC: ER 01:35
DX: N34.2 Other urethritis (principal); N48.1 Balanitis; J45.909 Unspecified asthma, uncomplicated; Z82.49 Family history of ischemic heart disease and other diseases of the circulatory system
CPT/HCPCS: 99283; 86592; 81003; 36415; 96372; J0696; J3490

== ENCOUNTER 2024-07-02 18:37 | Emergency (ER) | payer BC ==
[~2024-07-02] VITALS: Ht 175.3 cm; Wt 99.7 kg
[~2024-07-02 18:37] MED LIST changes: +CLOT15CR27 TP; +DOXY100T28 MT
[2024-07-02 18:56] VITALS: O2SAT 98
[2024-07-02 19:00] VITALS: TEMP 36.9; O2SAT 99
[2024-07-02 21:21] VITALS: BP 135/90; PULSE 84; RESP 16
[2024-07-02] MEDS: HYDROCODONE/ACETAMINOPHEN 5/325MG TABLET PO STA (21:21)
[2024-07-02] MEDS ORDERED: TRAM50TA3 PO (22:28)
[2024-07-02] MEDS ORDERED: ACET-2708 MT (22:28)
== END 2024-07-02 22:58 | disposition home or self-care (01) ==
LOC: ER 18:37
DX: S16.1XXA Strain of muscle, fascia and tendon at neck level, initial encounter (principal); S39.012A Strain of muscle, fascia and tendon of lower back, initial encounter; J45.909 Unspecified asthma, uncomplicated; Z87.891 Personal history of nicotine dependence; V43.52XA Car driver injured in collision with other type car in traffic accident, initial encounter; Y93.89 Activity, other specified; Y92.89 Other specified places as the place of occurrence of the external cause; Y99.8 Other external cause status
CPT/HCPCS: 72100; 99283

== ENCOUNTER 2024-08-17 14:37 | Emergency (ER) | payer BC, MEDICAID ==
[~2024-08-17] VITALS: Ht 172.7 cm; Wt 97.0 kg
[~2024-08-17 14:37] MED LIST changes: +ACET-2708 MT; +TRAM50TA3 PO
[2024-08-17 15:03] VITALS: O2SAT 97
[2024-08-17] MEDS: ACETAMINOPHEN 325MG TABLET PO ONE (15:52)
[2024-08-17] MEDS: KETOROLAC 15MG/ML VIAL IM ONE (15:53)
[2024-08-17] MEDS: LIDOCAINE 5% PATCH TOP SCH (15:53)
[2024-08-17] MEDS ORDERED: CYCL10TA21 MT (16:11)
[2024-08-17] MEDS ORDERED: LIDO700A30 TP (16:11)
[2024-08-17 16:22] VITALS: BP 138/85; PULSE 86; RESP 16; TEMP 36.7; O2SAT 99
[2024-08-18] MEDS ORDERED: ONDA-239 PO (05:43)
== END 2024-08-17 16:22 | disposition home or self-care (01) ==
LOC: ER 14:37
DX: M62.838 Other muscle spasm (principal); J45.909 Unspecified asthma, uncomplicated; Z79.899 Other long term (current) drug therapy; V49.40XA Driver injured in collision with unspecified motor vehicles in traffic accident, initial encounter; Y93.89 Activity, other specified; Y92.410 Unspecified street and highway as the place of occurrence of the external cause; Y99.9 Unspecified external cause status
CPT/HCPCS: 99283; 96372; J1885

== ENCOUNTER 2024-08-18 03:33 | Emergency (ER) | payer BC, MEDICAID ==
[~2024-08-18] VITALS: Ht 172.7 cm; Wt 98.0 kg
[~2024-08-18 03:33] MED LIST changes: +CYCL10TA21 MT; +LIDO700A30 TP
[2024-08-18 03:52] VITALS: O2SAT 99
[2024-08-18 04:26] LABS: BASOPHILS % 0.4 % (0.0-2.0); EOSINOPHILS % 0.8 % (0.0-5.0); HEMATOCRIT. 46.4 % (42.0-52.0); HEMOGLOBIN. 15.4 g/dL (14.0-18.0); LYMPHOCYTES % 24.8 % (20.0-50.0); MEAN CORPUSCULAR HEMOGLOBIN 30.2 pg (28.0-32.0); MEAN CORPUSCULAR HGB CONC 33.3 g/dL (31.0-37.0); MEAN CORPUSCULAR VOLUME 90.7 fL (80.0-94.0); MEAN PLATELET VOLUME 8.1 fl (7.4-10.4); MONOCYTES % 7.4 % (2.0-8.0); NEUTROPHILS % 66.6 % (40.0-76.0); PLATELET 226 x1000/uL (130-400); RED BLOOD CELL COUNT 5.11 mill/uL (4.7-6.1); WHITE BLOOD COUNT 11.5 x1000/uL (4.5-11.0)
[2024-08-18 04:39] LABS: CHLORIDE 108 mEq/L (98-107); POTASSIUM 4.2 mEq/L (3.5-5.1); SODIUM 141 mEq/L (136-145)
[2024-08-18 04:40] LABS: CALCIUM 9.3 mg/dL (8.7-10.4); CARBON DIOXIDE 28 mEq/L (21-32)
[2024-08-18 04:45] LABS: CREATININE 1.1 mg/dL (0.6-1.3); GLUCOSE 106 mg/dL (70-105); UREA NITROGEN BLOOD 11 mg/dL (9-23)
[2024-08-18] MEDS: IBUPROFEN 600MG TABLET PO ONE (04:47)
[2024-08-18] MEDS: ONDANSETRON 4MG ODT PO ONE (04:47)
[2024-08-18 04:49] LABS: TROPONIN I HIGH SENSITIVITY < 4 ng/L (3.0-53)
[2024-08-18] MEDS ORDERED: ONDA-239 PO (05:43)
[2024-08-18 06:10] VITALS: BP 133/93; PULSE 75; RESP 20; TEMP 36.9; O2SAT 98
== END 2024-08-18 06:11 | disposition home or self-care (01) ==
LOC: ER 03:33
DX: R07.89 Other chest pain (principal); J45.909 Unspecified asthma, uncomplicated; Z79.899 Other long term (current) drug therapy
CPT/HCPCS: 99285; 71045; 80048; 85025; 84484; 36415; 93005; Q0162

== ENCOUNTER 2024-08-31 02:02 | Emergency (ER) | payer BC, MEDICAID ==
[~2024-08-31] VITALS: Ht 172.7 cm; Wt 98.0 kg
[~2024-08-31 02:02] MED LIST changes: +ONDA-239 PO
[2024-08-31 02:09] VITALS: O2SAT 99
[2024-08-31] MEDS: CYCLOBENZAPRINE 10MG TABLET PO ONE (03:15)
[2024-08-31 03:18] VITALS: BP 124/83; PULSE 70; RESP 18; TEMP 36.7; O2SAT 99
[2024-08-31] MEDS: IBUPROFEN 600MG TABLET PO ONE (03:18)
[2024-08-31] MEDS ORDERED: CYCL10TA21 MT (04:46)
[2024-08-31] MEDS ORDERED: NAPR-1486 MT (04:46)
== END 2024-08-31 05:01 | disposition home or self-care (01) ==
LOC: ER 02:02
DX: M79.651 Pain in right thigh (principal); J45.909 Unspecified asthma, uncomplicated; Z79.899 Other long term (current) drug therapy; V49.9XXA Car occupant (driver) (passenger) injured in unspecified traffic accident, initial encounter; Y93.89 Activity, other specified; Y92.89 Other specified places as the place of occurrence of the external cause; Y99.8 Other external cause status
CPT/HCPCS: 93971; 99284

== ENCOUNTER 2024-12-20 00:05 | Emergency (ER) | payer BC, MEDICAID ==
[~2024-12-20] VITALS: Ht 172.7 cm; Wt 91.0 kg
[2024-12-20 00:13] VITALS: O2SAT 100
[2024-12-20] MEDS ORDERED: LIDOCAINE 5% PATCH TOP SCH (00:45)
[2024-12-20] MEDS ORDERED: LIDO-53 TP (01:52)
[2024-12-20] MEDS ORDERED: NAPR-1176 MT (01:52)
[2024-12-20] MEDS: KETOROLAC 15MG/ML VIAL IM ONE (02:14)
[2024-12-20] MEDS: KETOROLAC 15MG/ML VIAL IM NR (02:20)
[2024-12-20] MEDS: LIDOCAINE 5% PATCH TOP SCH (02:20)
[2024-12-20 02:24] VITALS: BP 146/86; PULSE 75; RESP 14; TEMP 36.9; O2SAT 99
== END 2024-12-20 02:29 | disposition home or self-care (01) ==
LOC: ER 00:05
DX: M25.521 Pain in right elbow (principal); M54.50 Low back pain, unspecified; J45.909 Unspecified asthma, uncomplicated
CPT/HCPCS: 99283; 73080; 96372; J1885

== ENCOUNTER 2025-01-27 01:43 | Emergency (ER) | payer BC, MEDICAID ==
[~2025-01-27] VITALS: Ht 172.7 cm; Wt 93.0 kg
[~2025-01-27 01:43] MED LIST changes: +LIDO-53 TP; +NAPR-1176 MT
[2025-01-27 01:52] VITALS: TEMP 37.1; O2SAT 98
[2025-01-27 02:37] LABS: BASOPHILS % 0.4 % (0.0-2.0); EOSINOPHILS % 0.6 % (0.0-5.0); HEMATOCRIT. 52.8 % (42.0-52.0); HEMOGLOBIN. 17.3 g/dL (14.0-18.0); LYMPHOCYTES % 32.5 % (20.0-50.0); MEAN PLATELET VOLUME 9.7 fl (7.4-10.4); MONOCYTES % 7.6 % (2.0-8.0); NEUTROPHILS % 58.9 % (40.0-76.0); PLATELET 227 x1000/uL (130-400); RED BLOOD CELL COUNT 5.76 mill/uL (4.7-6.1); RED CELL DISTRIBUTION WIDTH 13.7 % (11.6-14.6)
[2025-01-27 02:49] LABS: CREATININE 1.0 mg/dL (0.6-1.3); UREA NITROGEN BLOOD 6 mg/dL (9-23)
[2025-01-27 02:51] LABS: ASPARTATE AMINOTRANSFERASE 15 IU/L (<34); BILIRUBIN DIRECT 0.4 mg/dL (<=3.0); BILIRUBIN TOTAL 1.2 mg/dL (0.1-1.0); PROTEIN TOTAL 7.5 g/dL (6.0-8.3)
[2025-01-27] MEDS: FAMOTIDINE 20MG TABLET PO ONE (06:26)
[2025-01-27] MEDS: MAGNESIUM/ALUMINUM HYDROXIDE/SIMETHICONE 30ML UDC PO ONE (06:26)
[2025-01-27] MEDS ORDERED: KETOROLAC 30MG/ML VIAL IM ONE (06:45)
[2025-01-27 07:18] LABS: CLARITY URINE HAZY (CLEAR); COLOR URINE YELLOW (YELLOW); GLUCOSE URINE NEGATIVE (NEGATIVE); KETONES URINE 3+ (NEGATIVE); PH URINE 5.5 (4.5-8.0); PROTEIN URINE TRACE (NEGATIVE); SPECIFIC GRAVITY URINE 1.032 (1.005-1.030)
[2025-01-27 07:19] LABS: LEUKOCYTE ESTERASE URINE TRACE (NEGATIVE); NITRITE URINE NEGATIVE (NEGATIVE); OCCULT BLOOD URINE NEGATIVE (NEGATIVE); UROBILINOGEN URINE 1.0 E.U./dL (0.2-1.0)
[2025-01-27 07:21] LABS: SQUAMOUS EPITHELIAL CELL URINE FEW /lpf (RARE/1+)
[2025-01-27 07:22] LABS: RBC URINE 0-2 /hpf (0-2); WBC URINE 0-2 /hpf (0-2)
[2025-01-27 07:23] LABS: BACTERIA URINE NONE SEEN; CALCIUM OXALATE CRYSTALS URINE 1+ /lpf
[2025-01-27] MEDS ORDERED: IBUP-1455 MT (07:33)
[2025-01-27] MEDS ORDERED: CEFP200T13 MT (07:33)
[2025-01-27] MEDS ORDERED: TAMS-54 MT (07:33)
[2025-01-27] MEDS ORDERED: ONDA4TAB50 MT (07:48)
[2025-01-27 08:04] VITALS: BP 138/95; PULSE 72; RESP 20; O2SAT 99
== END 2025-01-27 08:07 | disposition home or self-care (01) ==
LOC: ER 01:43
DX: N20.0 Calculus of kidney (principal); K76.0 Fatty (change of) liver, not elsewhere classified; J45.909 Unspecified asthma, uncomplicated; R03.0 Elevated blood-pressure reading, without diagnosis of hypertension; Z79.1 Long term (current) use of non-steroidal anti-inflammatories (NSAID)
CPT/HCPCS: 99284; 74176; 80076; 80048; 81003; 85025; 36415; J1885